=== PATIENT | female | born 1945 | race Caucasian/White ===

== ENCOUNTER 2024-03-05 08:59 | Day surgery (SDC) | payer MEDICARE ==
[~2024-03-05] VITALS: Ht 163.8 cm; Wt 63.3 kg
[~2024-03-05 08:59] MED LIST: Ondansetron 4 MG/2 ML VIAL IV PRN
[2024-03-05 09:15] VITALS: BP 126/61; PULSE 68; TEMP 97.2
[2024-03-05] MEDS ORDERED: LR 1,000 ML IV SCH (09:47)
[2024-03-05] MEDS ORDERED: APRESOLINE 25MG25 MG PO (09:48)
[2024-03-05] MEDS ORDERED: AMARYL1 MG PO (09:48)
[2024-03-05] MEDS ORDERED: CARDURA 1MG1 MG PO (09:49)
[2024-03-05] MEDS ORDERED: COREG 25MG25 MG/TAB PO (09:53)
[2024-03-05] MEDS ORDERED: ZOCOR 10MG10 MG PO (09:55)
[2024-03-05] MEDS ORDERED: GLUCOPHAGE500 MG/TAB PO (09:55)
[2024-03-05] MEDS ORDERED: LASIX 20MG TABL20 MG PO (09:55)
[2024-03-05] MEDS ORDERED: MAG-OX 400400 MG/TAB PO (09:56)
[2024-03-05] MEDS ORDERED: B-12 500 MCG PO (09:57)
[2024-03-05] MEDS ORDERED: CALCIUM 600MG+D1 TAB PO (09:57)
[2024-03-05] MEDS ORDERED: PEPCID AC 10MG10 MG PO (10:00)
--- NOTE | 2024-03-05 10:06 | NUR ---
The patient ambulated back to [facility] independently using a steady gait and appeared to tolerate the activity well. Vital signs obtained. Consent signed. 20G IV started in right forearm with LR infusing without difficulty. Assessment completed. Home medications reconcilled. Warm blankets provided. Blood sugar obtained with a result of Lilia Ritter CRNA notified and ok with with pre op reading. Denies any further needs at this time.
[2024-03-05] MEDS ORDERED: Lidocaine PF 2% (20 MG/ML) 5 ML VIAL ONE (10:19)
[2024-03-05 11:05] VITALS: BP 123/55; PULSE 73; TEMP 97.3
[2024-03-05 11:15] VITALS: BP 122/59; PULSE 71
--- NOTE | 2024-03-05 12:00 | NUR ---
1105- PT RETURNS FROM ENDO PROCEDURE VIA CART AND RN ASSIST TO [facility]. PT AMBULATES FROM CART TO RECLINER WITH ASSIST. MONITORS ON AND ALARMS SET. CALL LIGHT WITHIN REACH. REPORT RECEIVED FROM BRIANNA GOTTI. PT ALERT AND ORIENTED. PT REQUESTS DRINK. PT DENIES ANY PAIN OR NAUSEA. 1115- PT TAKING DRINK WELL. NO COMPLICATIONS NOTED. 1140- DISCHARGE INSTRUCTIONS GIVEN TO PT. ALL QUESTIONS ANSWERED. 1145- PT TRANSFERRED OUT OF THE HOSPITAL VIA WHEELCHAIR TO PRIVATE VEHICLE DRIVEN BY SISTER.
== END 2024-03-05 11:45 ==
LOC: SDCO 08:59
DX: Z12.11 Encounter for screening for malignant neoplasm of colon (principal); K57.30 Diverticulosis of large intestine without perforation or abscess without bleeding; E11.22 Type 2 diabetes mellitus with diabetic chronic kidney disease; N18.30 Chronic kidney disease, stage 3 unspecified; Z86.010 Personal history of colon polyps; Z85.528 Personal history of other malignant neoplasm of kidney; Z87.891 Personal history of nicotine dependence
CPT/HCPCS: J2704; J7120